=== PATIENT | female | born 2000 | race Caucasian/White ===

== ENCOUNTER 2020-08-25 22:53 | Emergency (ER) | payer OTHER ==
[~2020-08-25] VITALS: Ht 157.5 cm; Wt 75.0 kg
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
[2020-08-26] MEDS ORDERED: CYCL-331 PO (01:44)
[2020-08-26] MEDS ORDERED: NAPR-683 PO (01:44)
[2020-08-26 02:00] VITALS: BP 137/77
[2020-08-26] MEDS ORDERED: NAPROXEN 500 MG TABLET PO ONE (02:00)
[2020-08-26] MEDS ORDERED: CYCLOBENZAPRINE 10 MG TABLET. PO ONE (02:00)
== END 2020-08-26 02:15 | disposition home or self-care (01) ==
LOC: ER 22:53
DX: S29.012A Strain of muscle and tendon of back wall of thorax, initial encounter (principal); M25.511 Pain in right shoulder; M25.512 Pain in left shoulder; V89.2XXA Person injured in unspecified motor-vehicle accident, traffic, initial encounter; Y93.89 Activity, other specified; Y92.488 Other paved roadways as the place of occurrence of the external cause; Y99.8 Other external cause status
CPT/HCPCS: 99283